=== PATIENT | male | born 1990 | race Caucasian/White ===

== ENCOUNTER 2017-04-17 21:09 | Emergency (ER) | payer MEDICAID, OTHER ==
[2017-04-17 21:26] VITALS: BMI 20.7
[2017-04-17 21:33] VITALS: BP 131/99; PULSE 116; RESP 18; TEMP 98; O2SAT 98
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
== END 2017-04-17 23:16 | disposition home or self-care (01) ==
LOC: ED 21:09
DX: F41.9 Anxiety disorder, unspecified (principal); Y09 Assault by unspecified means